=== PATIENT | male | born 2000 | race American Indian/Alaskan Native ===

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

== ENCOUNTER 2018-08-19 07:48 | Emergency (ER) | payer MEDICAID, OTHER ==
[2018-08-19] MEDS ORDERED: IBUPROFEN PO ONE (08:44)
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
[2018-08-19 10:14] VITALS: BP 131/78
== END 2018-08-19 10:13 | disposition home or self-care (01) ==
LOC: ED 07:48
DX: S01.511A Laceration without foreign body of lip, initial encounter (principal); J45.909 Unspecified asthma, uncomplicated; F17.200 Nicotine dependence, unspecified, uncomplicated; F12.90 Cannabis use, unspecified, uncomplicated; Y04.8XXA Assault by other bodily force, initial encounter; Y93.89 Activity, other specified; Y92.89 Other specified places as the place of occurrence of the external cause; Y99.8 Other external cause status
CPT/HCPCS: 70486; 99283